=== PATIENT | male | born 1965 | race Caucasian/White ===

== ENCOUNTER 2017-11-19 12:46 | Emergency (ER) | payer BC ==
--- NOTE | 2017-11-19 15:10 | RAD ---
RADIOGRAPH CHEST 1 VIEW: HISTORY: 52-year-old male with cough, chest congestion, fever, and chills. FINDINGS: There is cardiomegaly. There is no evidence of air space density, pulmonary edema, or pneumothorax. T he lateral costophrenic angles are sharp. IMPRESSION: 1. No acute pulmonary findings. 2. Cardiomegaly without congestive heart failure. heriberto [] POS: [facility]
== END 2017-11-19 14:00 | disposition home or self-care (01) ==
LOC: SCSER 12:46
DX: B34.9 Viral infection, unspecified (principal); I10 Essential (primary) hypertension; E11.9 Type 2 diabetes mellitus without complications; E78.5 Hyperlipidemia, unspecified; Z87.891 Personal history of nicotine dependence; Z79.899 Other long term (current) drug therapy
CPT/HCPCS: 71045; 87804; 93005

== ENCOUNTER 2017-12-22 21:24 | Emergency (ER) | payer BC ==
[2017-12-22] MEDS ORDERED: cloNIDine 0.1 MG TAB ONE (21:52)
[2017-12-22] MEDS ORDERED: diphenhydrAMINE 50 MG/ML VIAL ONE (21:52)
[2017-12-22 21:56] LABS: #Basophils 0.1 thou/uL (0.0-0.2); #Eosinphils 0.4 thou/uL (0.0-0.7); #Lymphocytes 1.9 thou/uL (1.20-3.40); #Monocytes 0.8 thou/uL (0.11-0.59); %Basophils 0.8 % (0.0-1.0); %Eosinophils 3.4 % (0.0-10.0); %Lymphocytes 18.9 % (21.0-51.0); %Neutrophils 68.9 % (42.0-75.0); Hemoglobin 14.5 g/dL (14.0-18.0); Mean Corpuscular HGB CONC 35.5 g/dL (32.0-36.0); Mean Corpuscular Hemoglobin 31.1 pg (27.0-31.0); Mean Corpuscular Volume 87.6 fl (80.0-94.0); Platelet Count 219 thou/uL (130-400); RBC Distribution Width 12.2 % (11.5-14.5); Red Blood Cell (RBC) Count 4.68 mill/uL (4.70-6.10); White Blood Cell (WBC) Count 10.2 thou/uL (4.8-10.8)
[2017-12-22 22:04] LABS: INR-International Normal Ratio 1.1; PTT 33.4 SEC (22.9-36.1)
[2017-12-22] MEDS ORDERED: Ondansetron HCl/PF 4 MG/2 ML Vial ONE ×2 (22:11→23:20)
[2017-12-22 22:19] LABS: ALT (SGPT) 25 U/L (8-55); AST (SGOT) 15 U/L (5-34); Albumin 4.4 g/dL (3.5-5.0); Alkaline Phosphatase 77 U/L (40-150); Anion Gap 12 mmol/L (10-20); BUN (Urea Nitrogen) 17 mg/dL (8.4-25.7); Bilirubin, Total 1.1 mg/dL (0.2-1.2); CK (CPK) 154 U/L (30-200); Calc. Creatinine Clearance 0 mL/min (70-130); Calcium 9.1 mg/dL (7.8-10.44); Carbon Dioxide 24 mmol/L (22-29); Chloride 103 mmol/L (98-107); Estimated GFR-MDRD 57; Globulin 1.9 g/dL (2.4-3.5); Glucose 139 mg/dL (70-105); Potassium 4.2 mmol/L (3.5-5.1); Protein, Total 6.3 g/dL (6.0-8.3); Sodium 135 mmol/L (136-145)
[2017-12-22 23:06] LABS: CKMB 2.3 ng/mL (0-6.6); Troponin I Less than 0.010 ng/mL (< 0.028)
--- NOTE | 2017-12-22 23:08 | CT ---
CT HEAD WITHOUT CONTRAST: 12/22/17 Multiple axial tomograms obtained through the head without IV enhancement. HISTORY: Headache. Ventricles are upper normal size. There is no evidence of acute mass, hemorrhage or infarct. Sinuses and mastoids are well aerated. IMPRESSION: Ventricles are upper normal size. If unexplained headaches persists, suggest neurologic consultation. POS: [facility]
[2017-12-22] MEDS ORDERED: hydrALAZINE 20 MG/ML VIAL ONE (23:20)
[2017-12-23] MEDS ORDERED: hydrALAZINE 20 MG/ML VIAL ONE (00:34)
[2017-12-23] MEDS ORDERED: Ondansetron HCl/PF 4 MG/2 ML Vial ONE (00:34)
[2017-12-23] MEDS ORDERED: hydrALAZINE 25 MG TAB ONE (00:34)
[2017-12-23] MEDS ORDERED: Ketorolac Tromethamine 30 MG/ML VIAL ONE (00:34)
[2017-12-23] MEDS ORDERED: methylPREDNISolone Sod Succ/PF 125 MG/2 ML VIAL ONE (02:06)
[2017-12-23] MEDS ORDERED: Magnesium Sulfate 2 GM/100 ML BAG ONE (02:07)
--- NOTE | 2018-01-15 00:24 | EKG ---
Test Reason : Blood Pressure : / mmHG Vent. Rate : 078 BPM Atrial Rate : 078 BPM P-R Int : 178 ms QRS Dur : 082 ms QT Int : 370 ms P-R-T Axes : 029 -09 017 degrees QTc Int : 421 ms Normal sinus rhythm Minimal voltage criteria for LVH, may be normal variant Borderline ECG Confirmed by BERTHA KLEIN ([id number]), general expeditor KATI BAILEY ([id number] on 01/15/2018 12:24:12 AM Referred By: ERNIE Confirmed By:BERTHA KLEIN
== END 2017-12-23 03:26 | disposition home or self-care (01) ==
LOC: ERS 21:24
DX: F07.81 Postconcussional syndrome (principal); S01.81XA Laceration without foreign body of other part of head, initial encounter; G93.2 Benign intracranial hypertension; G44.309 Post-traumatic headache, unspecified, not intractable; I10 Essential (primary) hypertension; E11.9 Type 2 diabetes mellitus without complications; E78.5 Hyperlipidemia, unspecified; F32.9 Major depressive disorder, single episode, unspecified; Z87.891 Personal history of nicotine dependence; Z79.899 Other long term (current) drug therapy; W55.22XA Struck by cow, initial encounter
CPT/HCPCS: 70450; 80053; 82553; 84484; 85025; 85610; 85730; 93005; 96361; 96365; 96375; 96376; J0360; J1200; J1885; J2405; J2930; J3475

== ENCOUNTER 2019-06-10 17:47 | Inpatient (IN) | payer BC ==
[2019-06-10 18:28] LABS: #Basophils 0.1 thou/uL (0.0-0.2); #Eosinphils 0.2 thou/uL (0.0-0.7); #Lymphocytes 1.8 thou/uL (1.20-3.40); #Monocytes 0.5 thou/uL (0.11-0.59); %Basophils 0.6 % (0.0-1.0); %Eosinophils 2.4 % (0.0-10.0); %Lymphocytes 20.8 % (21.0-51.0); %Monocytes 6.3 % (0.0-10.0); %Neutrophils 69.9 % (42.0-75.0); Hemoglobin 14.1 g/dL (14.0-18.0); Mean Corpuscular HGB CONC 36.1 g/dL (32.0-36.0); Mean Corpuscular Hemoglobin 31.7 pg (27.0-31.0); Mean Corpuscular Volume 87.9 fL (78.0-98.0); Mean Platelet Volume 7.4 fL (7.4-10.4); Platelet Count 199 thou/uL (130-400); RBC Distribution Width 12.5 % (11.5-14.5); Red Blood Cell (RBC) Count 4.45 mill/uL (4.70-6.10); White Blood Cell (WBC) Count 8.5 thou/uL (4.8-10.8)
--- NOTE | 2019-06-10 18:46 | RAD ---
PORTABLE CHEST ONE VIEW: Date: 06-10-19 Time: 6:04 p.m. History: Chest pain. FINDINGS: Comparison is made with exam of 11-19-17. The heart size is normal. The lungs are expanded without focal areas of consolidation, pneumothoraces or pleural effusions. IMPRESSION: No radiographic evidence of acute cardiopulmonary process. POS: [facility]
[2019-06-10] MEDS ORDERED: Aspirin Chewable 81 MG TAB ONE (18:48)
[2019-06-10 18:52] LABS: ALT (SGPT) 40 U/L (8-55); AST (SGOT) 22 U/L (5-34); Albumin 4.3 g/dL (3.5-5.0); Alkaline Phosphatase 62 U/L (40-150); Anion Gap 13 mmol/L (10-20); BUN (Urea Nitrogen) 19 mg/dL (8.4-25.7); Bilirubin, Total 0.9 mg/dL (0.2-1.2); Calc. Creatinine Clearance 0 mL/min (70-130); Calcium 9.3 mg/dL (7.8-10.44); Carbon Dioxide 24 mmol/L (22-29); Chloride 105 mmol/L (98-107); Estimated GFR-MDRD 52; Globulin 1.7 g/dL (2.4-3.5); Glucose 138 mg/dL (70-105); Lipase 35 U/L (8-78); Sodium 138 mmol/L (136-145)
[2019-06-10 19:12] LABS: CKMB 2.6 ng/mL (0-6.6)
[2019-06-10] MEDS ORDERED: Enoxaparin Sodium 100 MG/ML SYRINGE ONE (20:16)
[2019-06-10 22:32] LABS: Troponin I 0.035 ng/mL (< 0.028)
[2019-06-11 00:54] LABS: Troponin I 0.034 ng/mL (< 0.028)
[2019-06-11] MEDS ORDERED: Zolpidem Tartrate 5 MG TAB PO SCH (01:00)
--- NOTE | 2019-06-11 03:34 | HP ---
PRIMARY CARE PHYSICIAN: Nathan Nunez M.D. CHIEF COMPLAINT: Chest pain and shortness of breath. HISTORY OF PRESENT ILLNESS: This is a 54-year-old gentleman, patient of Dr. Nathan Nunez's with a history of hypertension, hyperlipidemia, anxiety, and strong family history of heart disease, who presents to the emergency department with 1 week of worsening chest pain with exertion. The patient has been seen by Dr. Arrieta in the past and has had normal workup. He has been concerned about his heart due to strong family history of heart disease in his father, grandfather, and uncles, who have all had their first heart attack or from heart attacks in the late 50s. 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 He states that over the past week whenever he starts working hard in the farm, he developed substernal chest pain with shortness of breath. He denies diaphoresis, but did have some nausea last night during an episode. The pain resolves with rest, but then once he starts working hard again, the pain returns. PAST MEDICAL HISTORY: Hypertension, hyperlipidemia, anxiety, and diet-controlled diabetes. PAST SURGICAL HISTORY: Right hand finger repair, ear tube placement, left shoulder repair, and tonsillectomy in the past. MEDICATIONS: Include, 1. Lisinopril 10 mg daily. 2. Prevacid 30 mg p.r.n. 3. Zoloft 100 mg daily. 4. Lipitor 20 mg daily. 5. Zofran as needed for nausea. PSYCHIATRIC HISTORY: Includes depression in the past. SOCIAL HISTORY: Occasional alcohol, just socially. Chewed tobacco in the past. Quit smoking over 10 years ago. FAMILY HISTORY: Father with NM at 58, grandfather with his first NM at 56, and uncles with heart attacks in their 50s as well. REVIEW OF SYSTEMS: As per the history of present illness. GENERAL: He denies any recent fevers, chills, or recent illness. HEENT: Denies headache, visual or hearing changes. Denies upper respiratory symptoms. CARDIAC: As per the history of present illness. Positive for chest pain. Positive shortness of breath. No palpitations. He states that he had a negative stress test years ago at Dr. Arrieta' office. PULMONARY: No cough or hemoptysis. GI: Denies nausea, vomiting, abdominal pain, melena, or hematochezia. : Denies dysuria or hematuria. NEUROLOGIC: Denies weakness, seizures, or syncope. PHYSICAL EXAMINATION: VITAL SIGNS: Temperature 98.7, pulse of 86, respirations 22, blood pressure 140/82, and pulse ox is 99% on room air. GENERAL: He is awake and alert. No acute distress. Speech is clear. HEENT: Mucosa is moist. NECK: Supple. No bruits. HEART: Regular rate and rhythm without murmurs. LUNGS: Clear bilaterally. ABDOMEN: Soft, nontender. No hepatosplenomegaly. No CVA tenderness. EXTREMITIES: No clubbing, cyanosis, or edema. No calf tenderness. NEUROLOGIC: Cranial nerves 2 through 12 are grossly intact. Strength is 5/5 in upper and lower extremities. LABORATORY DATA: Sodium 138, potassium 4.0, chloride 105, CO2 of 24, BUN and creatinine of 19 and 1.4 with a GFR of 52. Serum glucose of 138, which is nonfasting. Calcium 9.3. AST and ALT are normal. Troponin I was slightly elevated at 0.049 with a normal CK-MB at 2.6. Albumin of 4.3. D-dimer was slightly elevated at 0.54. White blood cell count 8500, hemoglobin and hematocrit of 14.1 and 39.1, platelets of 199. Chest x-ray showed no active disease. EKG revealed normal sinus rhythm. No acute ST-T changes that are observed. ASSESSMENT: This is a 54-year-old gentleman with multiple risk factors including family history, remote smoking, hypertension, hyperlipidemia, and stress, presents to the emergency department with symptoms consistent with unstable angina. PLAN: 1. Agree with admission. We will continue to rule out NM protocol. The patient has already received aspirin. Cardiology is being consulted to evaluate in the morning for further risk stratification including either repeat stress test or cardiac catheterization. 2. Hypertension. We will continue his lisinopril and monitor closely. 3. Hyperlipidemia, already on Lipitor. If he is found to have coronary artery disease, we will likely need to increase to a higher intensity statin at that time. 4. Anxiety. We will continue Zoloft at this time. Job ID: [id number]
[2019-06-11] MEDS ORDERED: ADENOSINE 60 MG/20 ML VIAL ONE (07:22)
--- NOTE | 2019-06-11 09:29 | PRG ---
DATE OF SERVICE: 06/11/2019 SUBJECTIVE: The patient is resting comfortably in bed. He describes no chest pain, no shortness of breath. He states he is feeling well. OBJECTIVE: VITAL SIGNS: His blood pressure is 157/90, temperature 98.7, and O2 saturations 98%. LUNGS: Clear. HEART: Reveals a regular rate and rhythm. No murmurs, gallops, or rubs. LABORATORY DATA: On reviewing lab, his troponins were fairly consistently mildly bumped. Otherwise, no significant elevation is otherwise noted. IMPRESSION: Chest pain with strong family history of cardiac disease. PLAN: Stress test today. Job ID: [id number]
[2019-06-11] MEDS: Aspirin 81 mg Enteric Coated Tablet PO SCH (09:37)
[2019-06-11] MEDS: Atorvastatin Calcium 20 MG TAB PO SCH (09:37)
[2019-06-11] MEDS: Lisinopril 10 MG TAB PO SCH (09:37)
--- NOTE | 2019-06-11 14:07 | CON ---
DATE OF CONSULTATION: 06/11/2019 REASON FOR CONSULTATION: Chest pain. HISTORY OF PRESENT ILLNESS: Mr. Hauser is a pleasant 54-year-old white gentleman, who comes to the hospital for chest pain. He has noticed that for the last week he has had some chest tightness when he does things. He is concerned as his father from an AK in his 50s and he is having a lot of friends get sick lately. He currently is pain free. He denies any chest pain, tightness, pressure, or shortness of breath. PAST MEDICAL HISTORY: 1. Hypertension. 2. Hyperlipidemia. 3. Anxiety. 4. Type 2 diabetes, diet controlled. SURGICAL HISTORY: 1. Right hand finger repair. 2. Ear tube placement. 3. Left shoulder repair. 4. Tonsillectomy. OUTPATIENT MEDICATIONS: 1. Lisinopril 10 mg a day. 2. Prevacid. 3. Zoloft. 4. Lipitor 20 mg a day. 5. Zofran p.r.n. SOCIAL HISTORY: Social alcohol use. Chewed tobacco, but quit 10 years ago. FAMILY HISTORY: Father of an AK at 58. Grandfather had his 1st AK at 56. Uncles with heart attacks in their 50s. ALLERGIES: NO KNOWN DRUG ALLERGIES. REVIEW OF SYSTEMS: A 12-point review of systems was done and was all negative unless stated in the history of present illness. PHYSICAL EXAMINATION: VITAL SIGNS: Temperature 97.4, pulse 72, respiratory rate 18, saturating 96% on room air, and blood pressure 132/86. GENERAL: Awake, alert, and oriented x3, in no distress. HEENT: Normocephalic and atraumatic. NECK: Supple. LUNGS: Clear. CARDIOVASCULAR: S1 and S2. No S3 or S4. No murmurs or rubs. ABDOMEN: Soft. Positive bowel sounds. EXTREMITIES: No edema. SKIN: Warm and dry. LABORATORY DATA: Laboratory work was reviewed. CBC with a white count of 8, hemoglobin 14, hematocrit 39, and platelet count of 199. D-dimer was 0.54. Chemistries with a creatinine of 1.4, GFR of 52, and glucose of 138. Troponin was 0.04, 0.03, and 0.03. Albumin of 4.3. ASSESSMENT AND PLAN: 1. Chest pain. 2. Family history of coronary artery disease. 3. Hypertension. 4. Diet-controlled diabetes. PLAN: We will further risk stratify with a stress test. If his stress test is positive or just mildly positive, we will plan on doing a heart catheterization. If it is completely normal, then we will treat medically and we will re-evaluate in the office in 2-4 weeks. If he continues to have the chest pains, we will plan on doing a heart catheterization at that point. Thank you for letting me to participate in the care of your patient. We will follow. Job ID: [id number]
--- NOTE | 2019-06-11 17:44 | NM ---
CARDIAC SPECT: CLINICAL HISTORY: 54-year-old male with chest pain, shortness of breath, hypertension, diabetes, unstable angina. TECHNIQUE: A myocardial perfusion scan was performed using the single isotope one day protocol with technetium-9 9m sestamibi. 11 mCi were injected intravenously for the rest exam followed by 29 mCi for the stress exam. Pharmacologic stress with Adenosine was monitored and interpreted by Dr. Lugo. FINDINGS: Homogeneous tracer distribution is seen in the myocardial segments on stress and rest images without fixed or reversible defects. GATED SPECT LVEF: 53%. WALL MOTION EXAM: Normal. IMPRESSION: Normal myocardial perfusion scan. POS: [facility]
[2019-06-11] MEDS ORDERED: Acetaminophen 500 MG TAB PO PRN (19:27)
[2019-06-11] MEDS ORDERED: Atorvastatin Calcium 20 MG TAB PO SCH (21:00)
[2019-06-12] MEDS: Sodium Chloride 0.9% 1,000 ML IV SCH ×4 (01:09→10:58)
[2019-06-12] MEDS ORDERED: Aspirin Chewable 81 MG TAB ONE (05:46)
[2019-06-12] MEDS: Aspirin 81 mg Enteric Coated Tablet PO SCH (06:07)
[2019-06-12] MEDS: Lisinopril 10 MG TAB PO SCH (06:08)
[2019-06-12] MEDS: Atorvastatin Calcium 20 MG TAB PO SCH (06:08)
[2019-06-12] MEDS ORDERED: Nitroglycerin 100MG/250ML BOT 250 ML ONE (06:36)
[2019-06-12] MEDS ORDERED: Heparin 10,000 UNITS/1 ML VIAL ONE (06:36)
[2019-06-12] MEDS ORDERED: Lidocaine 1% (PF) 30 ML VIAL ONE ×2 (06:36→08:32)
[2019-06-12] MEDS ORDERED: Verapamil 5 MG/2 ML VIAL ONE (06:37)
[2019-06-12] MEDS ORDERED: Fentanyl 100 MCG/2 ML VIAL ONE (06:37)
[2019-06-12] MEDS ORDERED: Midazolam HCl 2 mg/2 ml Vial ONE (06:37)
[2019-06-12] MEDS ORDERED: Sodium Chloride 0.9% 200 ML IV PRN (09:32)
[2019-06-12] MEDS ORDERED: Acetaminophen/Codeine 30-300mg Tablet PO PRN (09:32)
[2019-06-12] MEDS ORDERED: Nitroglycerin 0.4 MG TAB (25 Tab Bottle) SL PRN (09:32)
[2019-06-12] MEDS ORDERED: Sodium Chloride 0.9% 500 ML IV SCH (09:45)
[2019-06-12] MEDS ORDERED: Iopamidol 370 76% 100 ML VIAL ONE (14:01)
--- NOTE | 2019-06-12 14:21 | PRG ---
DATE OF SERVICE: 06/12/2019 SUBJECTIVE: This 54-year-old white male presented with chest pain. His troponin levels were elevated x3. He was diagnosed with a STEMI and Dr. Lugo is presently performing a cardiac cath on him. His father did of an SD in his 50s. The patient is very concerned about this. OBJECTIVE: VITAL SIGNS: Temperature 98.4, pulse 87, respiration 18, pulse ox 97, and blood pressure 136/84. HEART: Regular rate and rhythm without murmur. LUNGS: Clear. ABDOMEN: Soft. EXTREMITIES: With no edema. LABORATORY DATA: Troponin one 0.049, 0.035, 0.034. ASSESSMENT: 1. ST elevation myocardial infarction. 2. Chest pain. 3. Family history of heart disease. 4. Hypertension. 5. Hyperlipidemia. 6. Obesity. 7. Anxiety disorder. 8. Diabetes, diet control. PLAN: 1. We will check on the patient postop cath. 2. Depending on the results, we will determine whether he goes home today or not. 3. We will continue to treat his risk factors. I have discussed with him several times in the past about weight control, blood pressure control, and lipid control. Job ID: [id number]
[2019-06-12] MEDS ORDERED: Communication Order-Pharmacy FS SCH (17:20)
--- NOTE | 2019-06-12 17:33 | ULT ---
BILATERAL CAROTID DUPLEX ULTRASOUND: 06/12/19 HISTORY: Atherosclerotic vascular disease. TECHNIQUE: Ac scale ultrasound with color flow and spectral Doppler imaging of the extracranial carotid artery system is performed bilaterally. FINDINGS: There is minimal plaque formation on both sides. The peak systolic velocity in the right ICA measures 94 cm/s with an end diastolic velocity of 33 cm/s and systolic ratio of 0.97. The peak systolic velocity in the left ICA measures 112 cm/s with an end diastolic velocity of 22 cm/ s and systolic ratio of 0.84. Flow in both vertebral arteries remains antegrade. IMPRESSION: No evidence of hemodynamically significant stenosis. POS: [facility]
[2019-06-13] MEDS: Sodium Chloride 0.9% 1,000 ML IV SCH ×2 (00:14→13:01)
--- NOTE | 2019-06-13 00:35 | CON ---
DATE OF CONSULTATION: HISTORY OF PRESENT ILLNESS: This is a 54-year-old gentleman with a strong family history of heart disease with the father dying from a myocardial infarction. He began having some chest pains this past week with exertion that he felt was possibly indigestion. However, due to his family history, presented to the hospital. Although his stress test was read as normal, he did experience the most significant chest pain that he has had while doing the stress test. Cardiac catheterization was done today by Dr. Lugo and this did demonstrate an aneurysmal LAD and proximal circumflex with calcified ostial LAD stenosis and severe OM1 disease. The main circumflex and distal vessels which were left-dominant system had mild to moderate disease and the vessels did not exit the AV groove in a large enough manner to be bypassable. The right coronary artery was very small, nondominant, with significant disease. LVEF was felt to be normal. Cardiac echo has not been done. His chest x-ray was normal. His cardiac enzymes were slightly elevated with a troponin I up to 0.49. Creatinine was slightly elevated on admission at 1.4. PAST MEDICAL HISTORY: Includes hypertension, dyslipidemia, which have been treated. He has a remote smoking history, but none in many years and he did chew tobacco for many years. He states he has diet-controlled diabetes and I do not have a hemoglobin A1c. 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 He is . PAST SURGICAL HISTORY: Includes surgery on his right hand as well as left shoulder rotator cuff repair and remote tonsillectomy. MEDICATIONS: Prior to admission included; 1. Lisinopril 10. 2. Prevacid 30. 3. Zoloft . 4. Lipitor 20. ALLERGIES: NO KNOWN ALLERGIES. PHYSICAL EXAMINATION: GENERAL: He is an alert and cooperative gentleman. VITAL SIGNS: Weight 223 pounds. Height 5 feet 10 inches. NECK: No carotid bruits. Carotid ultrasound by the way showed no significant disease. CARDIAC: Regular rate and rhythm. No murmurs. LUNGS: Clear to auscultation. ABDOMEN: Obese, nontender, and unable to palpate organomegaly. EXTREMITIES: He has palpable pedal pulses bilateral. He is left arm dominant and had a heart catheterization through his right radial artery. At this time, the patient could have 2 grafts to his LAD and obtuse marginal. Informed consent has been obtained and schedule permitting, we will proceed with this on morning. Plan on CHU to the LAD in either saphenous vein or left radial artery to the obtuse marginal. Job ID: [id number]
[2019-06-13 07:55] LABS: Hemoglobin A1c 6.3 % (4.0-6.0)
[2019-06-13 08:09] LABS: Anion Gap 14 mmol/L (10-20); BUN (Urea Nitrogen) 14 mg/dL (8.4-25.7); Calc. Creatinine Clearance 97 mL/min (70-130); Calcium 9.3 mg/dL (7.8-10.44); Carbon Dioxide 22 mmol/L (22-29); Chloride 107 mmol/L (98-107); Estimated GFR-MDRD 61; Glucose 116 mg/dL (70-105); Potassium 4.6 mmol/L (3.5-5.1); Sodium 138 mmol/L (136-145)
--- NOTE | 2019-06-13 08:47 | CT ---
EXAM: CTA of the chest and abdomen HISTORY: Chest pain and epigastric pain for one week COMPARISON: None TECHNIQUE: Multiple contiguous axial images were obtained a CTA of the chest and abdomen with contras t per aortic dissection protocol. Sagittal and coronal 3-D MIP reformats were performed. FINDINGS: HEART: Normal in size without focal cardiac abnormality. PULMONARY ARTERIES: Normal in caliber without filling defects to suggest pulmonary emboli. MEDIASTINUM: No hilar or mediastinal lymphadenopathy. LUNGS: No focal infiltrates or masses. PLEURAL SPACE: No pleural effusion or pneumothorax. CHEST AND ABDOMINAL WALL SOFT TISSUES: Unremarkable LIVER: Unremarkable. GALLBLADDER: Unremarkable. KIDNEYS: Unremarkable. SPLEEN: Unremarkable. PANCREAS: Unremarkable. BOWEL: Unremarkable. RETROPERITONEUM: No lymphadenopathy BONES: Degenerative changes in the spine. ASCENDING THORACIC AORTA: Normal caliber without evidence of dissection or aneurysmal dilatation. DESCENDING THORACIC AORTA: Normal caliber without evidence of dissection or aneurysmal dilatation. ABDOMINAL AORTA: Normal caliber without evidence of dissection or aneurysmal dilatation. CELIAC TRUNK: Patent SMA: Patent MARY ELLEN: Patent RENAL ARTERIES: Bilateral single renal arteries without significant atherosclerotic disease IMPRESSION: No evidence of thoracic or abdominal aortic aneurysm or dissection
[2019-06-13] MEDS: Lisinopril 10 MG TAB PO SCH (09:31)
--- NOTE | 2019-06-13 12:29 | PRG ---
DATE OF SERVICE: 06/13/2019 SUBJECTIVE: The patient is doing well this morning. No complaints of chest pain or shortness of breath. Had a long discussion yesterday with Dr. Lugo and myself. The patient understands disease of his coronary artery disease. He is in need of bypass surgery. OBJECTIVE: VITAL SIGNS: Temperature 97.7, pulse 60, respirations 18, pulse ox 97, blood pressure 142/87. HEART: Regular rate and rhythm. LUNGS: Clear. ABDOMEN: Soft and nontender. EXTREMITIES: No edema. LABORATORY DATA: None. ASSESSMENT: 1. Coronary artery disease with significant disease to the left main artery as well as the obtuse marginal. 2. Hypertension. 3. Hyperlipidemia. 4. Obesity. 5. Anxiety disorder. 6. Diabetes, diet-controlled, with normal A1c. PLAN: 1. CT of the aorta today. Depending on the results, we will dictate the plan. 2. Appreciate Dr. Lugo and Dr. Beasley. 3. Possible bypass surgery in the a.m. Again, I had a long discussion with the patient about major lifestyle changes, especially his dietary habits. Job ID: [id number]
[2019-06-13] MEDS ORDERED: Lactated Ringer's 1,000 ML IV SCH (17:00)
--- NOTE | 2019-06-13 17:08 | PDOC.CPN ---
- Subjective Date: 06/13/19 Time: 12:30 - Review of Systems General: denies: fever/chills, weight/appetite/sleep changes, night sweats, fatigue Respiratory: denies: cough, congestion, shortness of breath, exercise intolerance Cardiovascular: denies: chest pain, palpitation, edema, paroxysmal nocturnal dyspnea, orthopnea Gastrointestinal: denies: nausea, vomiting, diarrhea, constipation, abd pain, GI bleeding Musculoskeletal: reports: pain. denies: tenderness, stiffness, swelling, arthritis/arthralgias Neurological: denies: numbness, syncope, seizure, weakness - Objective Allergies/Adverse Reactions: Allergies Allergy/AdvReac Type Severity Reaction Status Date / Time No Known Allergies Allergy Unverified 06/10/19 22:42 Visit Medications: Current Medications Lactated Ringer's (Lactated Ringer's) 1,000 mls @ 50 mls/hr IV .Q20H [facility] Last Admin: 06/13/19 16:58 Dose: 1,000 mls Lisinopril (Zestril) 10 mg PO DAILY [facility] Last Admin: 06/13/19 09:31 Dose: 10 mg Vital Signs & Weight: Vital Signs Temp Pulse Resp BP Pulse Ox 06/13/19 12:00 98.1 F 70 17 128/65 98 06/13/19 07:52 97.7 F 60 18 142/87 H 97 Weight 223 lb 12.307 oz - Physical Exam General: alert & oriented x3, no apparent distress HEENT: mucus membranes moist Neck: supple neck Cardiac: regular rate and rhythm, no murmur Lungs: clear to auscultation Neuro: grossly intact Abdomen: active bowel sounds, soft, non-tender Skin: clear Musculoskeletal: normal range of motion - Labs Result Diagrams: 06/10/19 18:15 06/13/19 07:38 Troponin/CKMB CK-MB (CK-2) 2.6 ng/mL (0-6.6) 06/10/19 18:15 Troponin I 0.034 ng/mL (< 0.028) H 06/11/19 00:21 - Telemetry Sinus rhythms and dysrhythmias: sinus rhythm - Assessment/Plan Assessment/Plan: 1. Multivessel CAD. 2. Unstable angina 3. Aneurysmal coronary arteries. PLAN: - CT angio of the chest was unremarkable, no aneurysm. - ASA/statin/BB and ACEI. - Dr. Beasley on board for CABG soon. - Will follow.
[2019-06-13] MEDS ORDERED: ALPRAZolam 0.5 MG TAB PO SCH (19:45)
[2019-06-14] MEDS ORDERED: CEFAZOLIN 2 GM in Premix Bag 1 BAG IVPB SCH (01:45)
[2019-06-14] MEDS: Lisinopril 10 MG TAB PO SCH (05:43)
[2019-06-14] MEDS ORDERED: Ampicillin 2 GM VIAL ONE (06:09)
[2019-06-14] MEDS ORDERED: Albumin 5% 500 ML ONE (06:36)
[2019-06-14] MEDS ORDERED: Vecuronium 10 MG VIAL ONE ×2 (06:48→12:50)
[2019-06-14] MEDS ORDERED: Midazolam HCl 5 mg/5 ml Vial ONE (06:48)
[2019-06-14] MEDS ORDERED: Fentanyl 250 MCG/5 ML VIAL ONE (06:48)
[2019-06-14] MEDS ORDERED: Dexmedetomidine 200 MCG/2 ML VIAL ONE (06:48)
[2019-06-14] MEDS ORDERED: Heparin 10,000 UNITS/1 ML VIAL 30,000 UNITS in Sodium Chloride 0.9% 1,000 ML FS SCH (07:00)
[2019-06-14] MEDS ORDERED: Midazolam HCl 2 mg/2 ml Vial ONE (07:09)
[2019-06-14] MEDS ORDERED: Insulin Regular 300 UNITS/3 ML VIAL ONE (09:20)
[2019-06-14] MEDS ORDERED: Nitroglycerin 50 MG/250 ML BOT 250 ML IVPB PRN (11:41)
[2019-06-14] MEDS ORDERED: DOPamine 400 MG/D5W 250 ML 250 ML IVPB PRN (11:41)
[2019-06-14] MEDS ORDERED: hydrALAZINE 20 MG/ML VIAL SLOW IVP PRN (11:41)
[2019-06-14] MEDS ORDERED: Hetastarch 6% 500 ML 500 ML IVPB PRN (11:41)
[2019-06-14] MEDS ORDERED: Bisacodyl 10 MG SUPP PR PRN (11:41)
[2019-06-14] MEDS ORDERED: Norepinephrine 8 MG/0.9% NS 250 ML IVPB PRN (11:41)
[2019-06-14] MEDS ORDERED: Promethazine HCl 25 MG/ML VIAL IM PRN (11:41)
[2019-06-14] MEDS ORDERED: Guaifenesin DM 100-10/5 ML UDCUP PO PRN (11:41)
[2019-06-14] MEDS ORDERED: Post-Op Insulin Drip Protocol IVPB ONE (11:41)
[2019-06-14] MEDS ORDERED: HYDROcodone/Acetaminophen 5/325 mg Tablet PO PRN (11:41)
[2019-06-14] MEDS ORDERED: Bisacodyl 5 MG TAB PO PRN (11:41)
[2019-06-14] MEDS ORDERED: Magnesium 2 GM/50 ML 2 GM in Premix Bag 1 BAG IVPB SCH (11:41)
[2019-06-14] MEDS ORDERED: niCARdipine 25 MG in Sodium Chloride 0.9% 250 ML 250 ML IVPB PRN (11:41)
[2019-06-14] MEDS ORDERED: Fentanyl 100 MCG/2 ML VIAL SLOW IVP PRN (11:41)
[2019-06-14] MEDS ORDERED: Acetaminophen 325 MG TAB PO PRN (11:41)
[2019-06-14] MEDS ORDERED: Potassium Chloride 20 MEQ/100 ML PREMIX BAG IVPB PRN (11:41)
[2019-06-14] MEDS ORDERED: Morphine 2 MG/ML SYRINGE SLOW IVP PRN (11:41)
[2019-06-14] MEDS ORDERED: Mag-Al 1200 mg/1200 mg/30 ML UDCUP PO PRN (11:41)
[2019-06-14] MEDS ORDERED: Ondansetron PF 4 MG/2 ML Vial IVP PRN (11:41)
[2019-06-14] MEDS ORDERED: Fentanyl 100 MCG/2 ML VIAL ONE (11:59)
--- NOTE | 2019-06-14 12:03 | RAD ---
EXAM: Single view of the chest HISTORY: Status post open heart surgery COMPARISON: 06/10/2019 FINDINGS: Single view of the chest shows a normal sized cardiomediastinal silhouette. The patient is status post sternotomy. A right subclavian central venous catheter seen with its tip in the superior vena cava. A right-sided chest tube is seen without evidence of pneumothorax. There is no e vidence of consolidation, mass, or pleural effusion. IMPRESSION: Status post sternotomy without evidence of complication.
[2019-06-14 12:12] LABS: Hemoglobin 12.7 g/dL (14.0-18.0); Mean Corpuscular HGB CONC 35.7 g/dL (32.0-36.0); Mean Corpuscular Hemoglobin 31.8 pg (27.0-31.0); Mean Corpuscular Volume 89.1 fL (78.0-98.0); Mean Platelet Volume 7.2 fL (7.4-10.4); Platelet Count 208 thou/uL (130-400); RBC Distribution Width 12.7 % (11.5-14.5); White Blood Cell (WBC) Count 20.6 thou/uL (4.8-10.8)
[2019-06-14] MEDS ORDERED: Insulin Regular 300 UNITS/3 ML VIAL SC PRN (12:13)
[2019-06-14] MEDS ORDERED: Dextrose 50% Abboject 50 ML SYRINGE SLOW IVP PRN (12:13)
[2019-06-14] MEDS ORDERED: HUMULIN R 100 UNITS in Sodium Chloride 0.9% 100 ML IVPB SCH (12:13)
[2019-06-14] MEDS ORDERED: Dextrose 5% in Water 1,000 ML IV PRN (12:13)
[2019-06-14] MEDS: Fentanyl 100 MCG/2 ML VIAL SLOW IVP PRN ×3 (12:20→20:31)
[2019-06-14] MEDS: Ketorolac Tromethamine 30 MG/ML VIAL IVP SCH ×2 (12:21→17:49)
[2019-06-14 12:28] LABS: Anion Gap 11 mmol/L (10-20); BUN (Urea Nitrogen) 12 mg/dL (8.4-25.7); Calc. Creatinine Clearance 112 mL/min (70-130); Carbon Dioxide 20 mmol/L (22-29); Chloride 116 mmol/L (98-107); Estimated GFR-MDRD 72; Glucose 85 mg/dL (70-105); INR-International Normal Ratio 1.3; PTT 31.4 SEC (22.9-36.1); Potassium 4.1 mmol/L (3.5-5.1); Prothrombin Time 16.2 SEC (12.0-14.7); Sodium 143 mmol/L (136-145)
[2019-06-14] MEDS: Lactated Ringer's 1,000 ML IV SCH (12:30)
[2019-06-14 12:43] LABS: Band 7 % (5-11); Eosinophils 1 % (0-10); Lymphocytes 10 % (21-51); MDiff Complete? YES; Monocytes 9 % (0-10); Neutrophil 72 % (42-75); Ovalocytes SLIGHT = 2-5 cells (100X) (0-1/hpf); Platelet Morphology Comment Appears Adequate; Polychromasia SLIGHT = 2-3 cells (100X) (0-2/hpf)
[2019-06-14] MEDS ORDERED: Sodium Bicarb 50 MEQ/50 ML VIAL ONE (12:50)
[2019-06-14] MEDS ORDERED: Lidocaine 2% PF 100 mg/5 ml Syringe ONE (12:50)
[2019-06-14] MEDS ORDERED: Nitroglycerin 50 MG/250 ML BOT ONE (12:50)
[2019-06-14] MEDS ORDERED: Ondansetron PF 4 MG/2 ML Vial ONE (12:50)
[2019-06-14] MEDS ORDERED: Aminocaproic Acid 5 GM/20 ML VIAL ONE (12:50)
[2019-06-14] MEDS ORDERED: Protamine Sulfate 250 MG/25 ML VIAL ONE (12:50)
[2019-06-14] MEDS ORDERED: Potassium Chloride 60 MEQ/30 ML VIAL ONE (12:50)
[2019-06-14] MEDS ORDERED: PROPOFOL 200 MG/20 ML VIAL ONE (12:50)
[2019-06-14] MEDS ORDERED: Cardioplegic Soln 1,000 ML BAG ONE (12:50)
[2019-06-14] MEDS ORDERED: Heparin 5,000 UNITS/ML VIAL ONE (12:50)
[2019-06-14] MEDS ORDERED: Papaverine 60 MG/2 ML VIAL ONE (12:50)
[2019-06-14] MEDS ORDERED: Magnesium 5 GM/10 ML VIAL ONE (12:50)
[2019-06-14] MEDS ORDERED: Thrombin 5000 UNITS/5 ML VIAL ONE (12:50)
[2019-06-14] MEDS ORDERED: Heparin 30,000 units/30 ml VIAL ONE (12:50)
[2019-06-14] MEDS ORDERED: Norepinephrine 4 MG/4 ML VIAL ONE (12:50)
[2019-06-14] MEDS ORDERED: Mannitol 12.5 GM/50 ML ONE (12:50)
[2019-06-14] MEDS ORDERED: Calcium Chloride 1 GM/10 ML Abboject SYRINGE ONE (12:50)
[2019-06-14] MEDS ORDERED: Glycopyrrolate 0.2 MG/ML 5 ML SYRINGE ONE (12:50)
[2019-06-14] MEDS: HYDROcodone/Acetaminophen 5/325 mg Tablet PO PRN ×3 (13:36→22:17)
[2019-06-14 13:59] VITALS: BMI 30.9
[2019-06-14] MEDS: CEFAZOLIN 2 GM in Premix Bag 1 BAG IVPB SCH ×2 (14:21→22:11)
--- NOTE | 2019-06-14 16:50 | PDOC.CPN ---
- Subjective Date: 06/14/19 Time: 12:00 - Review of Systems ROS unobtainable: due to mental status - Objective Allergies/Adverse Reactions: Allergies Allergy/AdvReac Type Severity Reaction Status Date / Time No Known Allergies Allergy Unverified 06/10/19 22:42 Visit Medications: Current Medications Acetaminophen (Tylenol) 650 mg PO Q6H PRN PRN Reason: Headache/Fever Or Mild Pain Hydrocodone Bitart/Acetaminophen ([place] 5/325) 1 tab PO Q4H PRN PRN Reason: Moderate Pain (4-6) Hydrocodone Bitart/Acetaminophen ([place] 5/325) 2 tab PO Q4H PRN PRN Reason: Severe Pain (7-10) Last Admin: 06/14/19 13:36 Dose: 2 tab Al Hydroxide/Mg Hydroxide (Maalox) 30 ml PO Q4H PRN PRN Reason: Indigestion Albumin Human (Albumin 5%) 12.5 gm IVPB Q6H PRN PRN Reason: To Maintain SBP> 90 mmHG Stop: 06/15/19 11:42 Last Admin: 06/14/19 14:30 Dose: 12.5 gm Albumin Human (Albumin 5%) 25 gm IVPB Q6H PRN PRN Reason: To Maintain SBP > 90 mmHG Stop: 06/15/19 11:42 Albuterol/Ipratropium (Duoneb) 3 ml NEB [id number] PRN PRN Reason: SHORTNESS OF BREATH Aspirin (Aspirin) 325 mg PO DAILY [facility] Bisacodyl (Dulcolax) 10 mg PO Q12H PRN PRN Reason: Constipation Bisacodyl (Dulcolax) 10 mg [place] Q12H PRN PRN Reason: Constipation Dextrose/Water (Dextrose 50%) 25 gm SLOW IVP PRN PRN PRN Reason: PER HYPOGLYCEMIC PROTOCOL Famotidine (Pepcid) 20 mg SLOW IVP Q12HR [facility] Fentanyl (Sublimaze) 25 mcg SLOW IVP Q2H PRN PRN Reason: Moderate Pain (4-6) Stop: 06/16/19 11:28 Last Admin: 06/14/19 12:06 Dose: 25 mcg Fentanyl (Sublimaze) 50 mcg SLOW IVP Q2H PRN PRN Reason: Severe Pain (7-10) Stop: 06/16/19 11:28 Last Admin: 06/14/19 14:20 Dose: 50 mcg Glucagon (Glucagon) 1 mg SC PRN PRN PRN Reason: PER HYPOGLYCEMIC PROTOCOL Guaifenesin/Dextromethorphan (Robitussin Dm) 15 ml PO Q4H PRN PRN Reason: Cough Hydralazine HCl (Apresoline) 10 mg SLOW IVP Q6H PRN PRN Reason: To Maintain SBP< 140mmHG Cefazolin Sodium/Dextrose 2 gm (/ Device) 50 mls @ 100 mls/hr IVPB Q8HR [facility] Stop: 06/15/19 06:29 Last Admin: 06/14/19 14:21 Dose: 50 mls Dopamine HCl/Dextrose (Dopamine 400 Mg/D5w 250 Ml) 250 mls @ 0 mls/hr IVPB PRN PRN; Protocol PRN Reason: To maintain SBP > 90 mmHG Hetastarch/Sodium Chloride (Hespan) 500 mls @ 0 mls/hr IVPB PRN PRN PRN Reason: To Maintain SBP > 90mmHg Stop: 06/15/19 11:28 Lactated Ringer's (Lactated Ringer's) 1,000 mls @ 75 mls/hr IV .[id number] [facility] Last Admin: 06/14/19 12:30 Dose: 1,000 mls Norepinephrine Bitartrate (Levophed) 250 mls @ 0 mls/hr IVPB PRN PRN; Protocol PRN Reason: To maintain SBP > 90 mmHG Nicardipine HCl 25 mg/ Sodium (Chloride) 260 mls @ 0 mls/hr IVPB INF PRN; Protocol PRN Reason: To Maintain SBP< 140mmHG Nitroglycerin/Dextrose (Nitroglycerin 50 Mg/250 Ml Bot) 250 mls @ 0 mls/hr IVPB PRN PRN; Protocol PRN Reason: To Maintain SBP< 140mmHG Insulin Human Regular 100 (units/ Sodium Chloride) 101 mls @ 0 mls/hr IVPB INF JIM; Protocol Dextrose/Water (D5w) 1,000 mls @ 0 mls/hr IV INF PRN PRN Reason: PRN HYPOGLYCEMIC PROTOCOL Insulin Glargine (Lantus) 0 units SC ONE PRN PRN Reason: POST OPEN HEART ORDERS Stop: 06/15/19 17:00 Insulin Human Regular (Humulin R) 0 units SC Q4H PRN; Protocol PRN Reason: POST CABG SLIDING SCALE Ketorolac Tromethamine (Toradol) 15 mg IVP Q6HR [facility] Stop: 06/17/19 12:01 Last Admin: 06/14/19 12:21 Dose: 15 mg Morphine Sulfate (Morphine) 2 mg SLOW IVP Q15MIN PRN PRN Reason: Severe Pain (7-10) Ondansetron HCl (Zofran) 4 mg IVP Q6H PRN PRN Reason: Nausea/Vomiting Last Admin: 06/14/19 12:36 Dose: 4 mg Potassium Chloride (Kcl) 20 meq IVPB PRN PRN PRN Reason: K level </= 4.0 Promethazine HCl (Phenergan) 6.25 mg IM Q4H PRN PRN Reason: Nausea/Vomiting Vital Signs & Weight: Vital Signs Temp Pulse Resp Pulse Ox 06/14/19 11:53 48 L 22 H 97 06/14/19 11:50 50 L 06/14/19 11:47 97.8 F 100 Admit Weight 215 lb 9.793 oz Weight 215 lb 9.793 oz - Physical Exam General: other (In pain, just extubated.) HEENT: mucus membranes moist Neck: supple neck Cardiac: regular rate and rhythm, regular rate, regular rhythm Lungs: clear to auscultation Neuro: grossly intact Abdomen: active bowel sounds, soft Skin: clear Musculoskeletal: normal range of motion - Labs Result Diagrams: 06/14/19 11:54 06/14/19 11:54 Troponin/CKMB CK-MB (CK-2) 2.6 ng/mL (0-6.6) 06/10/19 18:15 Troponin I 0.034 ng/mL (< 0.028) H 06/11/19 00:21 - Telemetry Sinus rhythms and dysrhythmias: sinus rhythm - Assessment/Plan Assessment/Plan: 1. Multivessel CAD. 2. Unstable angina 3. Aneurysmal coronary arteries. 4. S/P CABG x 2 CHU to LAD and SVG to OM. PLAN: - Continue post op care. - Wean levophed as tolerated. - ASA/statin for life. - BB and ACEI once BP allows.
[2019-06-14 18:01] LABS: Hemoglobin 12.8 g/dL (14.0-18.0)
[2019-06-14 18:20] LABS: Potassium 4.5 mmol/L (3.5-5.1)
[2019-06-14] MEDS: Famotidine/PF 20 mg/2ml Vial SLOW IVP SCH (20:33)
[2019-06-14] MEDS: Atorvastatin Calcium 20 MG TAB PO SCH (20:33)
--- NOTE | 2019-06-14 21:04 | PRG ---
DATE OF SERVICE: SUBJECTIVE: Postop day #0 status post bypass grafting. The patient has just returned from the OR. He is alert, talking. He is in moderate pain and receiving pain medicines. is at the bedside. He is doing well. OBJECTIVE: VITAL SIGNS: Temperature 98, pulse 48, respirations 22, pulse ox 97, blood pressure 135/74. HEART: Regular rate and rhythm. LUNGS: Relatively clear. ABDOMEN: Soft. EXTREMITIES: No edema. LABORATORY DATA: H and H postop 12 and 35. Electrolytes normal. Creatinine 1.06, BUN 72, blood sugar 85. ASSESSMENT: 1. Postop day #1 status post coronary artery bypass grafting by Dr. Beasley. 2. Multivessel coronary artery disease. 3. Unstable angina. 4. Aneurysmal coronary arteries. 5. Hypertension. 6. Hyperlipidemia. 7. Obesity. 8. Anxiety disorder. 9. Diabetes, diet controlled. PLAN: 1. Routine postop orders. 2. Hopefully, can ambulate tomorrow. 3. We will continue to monitor blood pressure and blood sugars. 4. We will continue to discuss cardiac reducing measures. Job ID: [id number]
[2019-06-15] MEDS: Ketorolac Tromethamine 30 MG/ML VIAL IVP SCH ×2 (00:02→05:39)
[2019-06-15] MEDS: Fentanyl 100 MCG/2 ML VIAL SLOW IVP PRN (03:10)
[2019-06-15] MEDS: Lactated Ringer's 1,000 ML IV SCH ×2 (03:11→15:26)
[2019-06-15 04:50] LABS: #Lymphocytes 1.3 thou/uL (1.20-3.40); #Monocytes 0.9 thou/uL (0.11-0.59); #Neutrophils 8.3 thou/uL (1.40-6.50); %Basophils 0.3 % (0.0-1.0); %Eosinophils 0.1 % (0.0-10.0); %Lymphocytes 12.1 % (21.0-51.0); %Monocytes 8.2 % (0.0-10.0); %Neutrophils 79.3 % (42.0-75.0); Hemoglobin 11.3 g/dL (14.0-18.0); Mean Corpuscular HGB CONC 34.5 g/dL (32.0-36.0); Mean Corpuscular Hemoglobin 31.6 pg (27.0-31.0); Mean Corpuscular Volume 91.7 fL (78.0-98.0); Mean Platelet Volume 7.6 fL (7.4-10.4); Platelet Count 172 thou/uL (130-400); RBC Distribution Width 13.2 % (11.5-14.5); Red Blood Cell (RBC) Count 3.58 mill/uL (4.70-6.10); White Blood Cell (WBC) Count 10.4 thou/uL (4.8-10.8)
[2019-06-15 04:59] LABS: Anion Gap 11 mmol/L (10-20); BUN (Urea Nitrogen) 18 mg/dL (8.4-25.7); Calc. Creatinine Clearance 87 mL/min (70-130); Calcium 7.8 mg/dL (7.8-10.44); Carbon Dioxide 21 mmol/L (22-29); Chloride 107 mmol/L (98-107); Estimated GFR-MDRD 57; Glucose 106 mg/dL (70-105); Sodium 135 mmol/L (136-145)
[2019-06-15] MEDS: HYDROcodone/Acetaminophen 5/325 mg Tablet PO PRN ×5 (05:09→21:45)
[2019-06-15] MEDS: CEFAZOLIN 2 GM in Premix Bag 1 BAG IVPB SCH (05:40)
--- NOTE | 2019-06-15 08:03 | OP ---
DATE OF PROCEDURE: 06/14/2019 PREOPERATIVE DIAGNOSIS: Coronary artery disease. PROCEDURE PERFORMED: Coronary artery bypass graft x2, left internal mammary artery to an LAD and saphenous vein graft to an OM. POULTRY PINNER: None. ANESTHESIA: General. TRANSFUSION: No transfusion. DESCRIPTION OF PROCEDURE: After adequate anesthesia had been obtained, the patient was prepped and draped. Saphenous vein harvested from the left knee distally. Following preparation of this, median sternotomy was performed, entering the right pleura in one small area. Left internal mammary artery was harvested and the pleura was entered as well. Heparin was given. The mammary divided distally and passed posterior to the thymus gland. Aorta and right atrium were cannulated and cardiopulmonary bypass was begun. The aorta was cross clamped. A liter of cold blood cardioplegia given through the aortic root. Following this, the obtuse marginal was exposed and had plaque diffusely throughout. It was opened just as it bifurcated distally and had posterior plaquing here. Saphenous vein anastomosis completed. The LAD was then palpated and it too was diffusely calcified throughout its entire extent. A soft spot was isolated and opened, and even at this soft spot, plaque was divided. The mammary artery anastomosis was completed here. Cross-clamp removed, partial occluding clamp placed. A single anastomosis performed. Following this, the distal MARY ELLEN was bleeding and additional sutures were required. The patient was then weaned from cardiopulmonary bypass. Cannula was removed and the aortic cannulation site required additional Prolene suture. Following protamine administration, the patient had mediastinal and bilateral pleural drains placed. The sternum was then reapproximated with #7 interrupted wire using vancomycin paste on the sternal edges, platelet-rich blood, and platelet-poor plasma. Subcutaneous tissue and skin were closed in layers. Job ID: [id number]
[2019-06-15] MEDS: Famotidine/PF 20 mg/2ml Vial SLOW IVP SCH (08:54)
[2019-06-15] MEDS ORDERED: Aspirin 325 MG TAB PO SCH (09:00)
--- NOTE | 2019-06-15 09:30 | RAD ---
CHEST 1 VIEW: INDICATION: Status post open heart surgery. COMPARISON: Prior exam dated 06/14/2019. FINDINGS/IMPRESSION: Right-sided thoracostomy tube and right subclavian central venous catheter are unchanged. Cardiomega ly and midline sternotomy changes are similar-appearing. No pneumothorax is evident. Lungs are luis r. POS: OFF
[2019-06-15 10:23] LABS: Actual Bicarbonate (HCO3a) 20.3 mEq/L (22-28); Analyzer IN Cardio OR; Base Excess (BEa) -3.8 mEq/L (-2.0 to +3.0); Calcium, Ionized 1.11 mmol/L (1.12-1.30); Carboxyhemoglobin (COHb) 0.5 gm% (0.0-3.0); Hemoglobin (Hb) 13.4 g/dL (14.0-18.0); Potassium - ABG Lab 3.48 mmol/L (3.70-5.30); pH, Arterial 7.39 (7.35-7.45)
[2019-06-15 10:24] LABS: Actual Bicarbonate (HCO3a) 17.3 mEq/L (22-28); Analyzer IN Cardio OR; Base Excess (BEa) -7.4 mEq/L (-2.0 to +3.0); CO2 Tension 32.6 mmHg (35.0-45.0); Calcium, Ionized 1.09 mmol/L (1.12-1.30); Carboxyhemoglobin (COHb) 0.3 gm% (0.0-3.0); Hemoglobin (Hb) 12.7 g/dL (14.0-18.0); O2 Tension (PaO2) 272.5 mmHg (80.0-100.0); Potassium - ABG Lab 3.87 mmol/L (3.70-5.30); pH, Arterial 7.34 (7.35-7.45)
[2019-06-15 10:24] LABS: Actual Bicarbonate (HCO3a) 19.9 mEq/L (22-28); Analyzer IN Cardio OR; Base Excess (BEa) -6.1 mEq/L (-2.0 to +3.0); CO2 Tension 41.1 mmHg (35.0-45.0); Calcium, Ionized 1.02 mmol/L (1.12-1.30); Carboxyhemoglobin (COHb) 0.3 gm% (0.0-3.0); O2 Tension (PaO2) 427.8 mmHg (80.0-100.0); Potassium - ABG Lab 4.05 mmol/L (3.70-5.30)
[2019-06-15 10:29] LABS: Actual Bicarbonate (HCO3v) 20 mEq/L (22-28); Analyzer IN Cardio OR; Base Excess -6.8 mEq/L (-2.0 to +3.0); Calcium, Ionized 1.01 mmol/L (1.16-1.32); Chloride (ABG LAB) 108 mmol/L (98-106); Hemoglobin (Hb) 10.7 g/dL (13.1-17.2); Potassium - ABG Lab 3.92 mmol/L (3.70-5.30); Sodium 137.1 mmol/L (133-146); pH (venous) 7.27 (7.32-7.43)
[2019-06-15 10:29] LABS: Actual Bicarbonate (HCO3a) 22.6 mEq/L (22-28); Analyzer IN Cardio OR; Base Excess (BEa) -3.8 mEq/L (-2.0 to +3.0); CO2 Tension 46.6 mmHg (35.0-45.0); Calcium, Ionized 1.02 mmol/L (1.12-1.30); Carboxyhemoglobin (COHb) 0.2 gm% (0.0-3.0); Hemoglobin (Hb) 10.8 g/dL (14.0-18.0); Potassium - ABG Lab 3.72 mmol/L (3.70-5.30)
[2019-06-15 10:30] LABS: Puncture Site ALINE
[2019-06-15 10:30] LABS: Actual Bicarbonate (HCO3a) 21.3 mEq/L (22-28); Analyzer IN Cardio OR; CO2 Tension 39.7 mmHg (35.0-45.0); Calcium, Ionized 1.12 mmol/L (1.12-1.30); Carboxyhemoglobin (COHb) 0.3 gm% (0.0-3.0); Hemoglobin (Hb) 11.4 g/dL (14.0-18.0); Potassium - ABG Lab 3.67 mmol/L (3.70-5.30); pH, Arterial 7.35 (7.35-7.45)
[2019-06-15 10:30] LABS: Puncture Site ALINE
[2019-06-15 10:31] LABS: Puncture Site ALINE
[2019-06-15 10:31] LABS: Puncture Site ALINE
[2019-06-15 10:32] LABS: Puncture Site ALINE
--- NOTE | 2019-06-15 11:04 | EKG ---
Test Reason : POST CABG Blood Pressure : / mmHG Vent. Rate : 047 BPM Atrial Rate : 047 BPM P-R Int : 162 ms QRS Dur : 066 ms QT Int : 450 ms P-R-T Axes : 026 -04 -04 degrees QTc Int : 398 ms Marked sinus bradycardia Abnormal ECG Confirmed by WILMA SOTO ([id number]) on 06/15/2019 11:04:02 AM Referred By: BG Confirmed By:WILMA SOTO
--- NOTE | 2019-06-15 12:18 | PQF ---
DATE: 06-15-19 ATTN: DR. EDWARDO HUDDLESTON Please exercise your independent, professional judgment in responding to the clarification form. Clinical indicators are provided on the bottom of this form for your review Please check appropriate box(s): [x ] Acute Renal Failure (ARF) / Acute Kidney Injury (ANNIKA) [ ] Insignificant Lab Values [ ] Other diagnosis [ ] Unable to determine In addition, please specify: Present on Admission (POA): [x ] Yes [ ] No [ ] Unable to determine National Kidney Foundation Guidelines for CKD Staging Stage I Kidney damage with normal or increased GFR GFR > 90 Stage II Kidney damage with mildly decreased GFR GFR 60- 89 Stage III Kidney damage with moderately decreased GFR GFR 30-59 Stage IV Kidney damage with severely decreased GFR GFR 16-29 Stage V Kidney failure GFR<15 ESRD End Stage Renal Disease On dialysis Acute Renal Failure/Acute Kidney Failure defined as: Increases in SCr by (>) 0.3 mg/dl within 48 hours OR- Increases in SCr by (>) 1.5 times baseline, known or presumed to have occurred within the prior 7 days OR- Urine volume < 0.5 ml/kg/hour for 6 hours (KDIGO supplement 2012 for RIFLE/MERNA criteria) For continuity of documentation, please document condition throughout progress notes and discharge summary. Thank You. CLINICAL INDICATORS - SIGNS / SYMPTOMS / LABS: GFR: 06-10-19: 52 06-13-19: 61 06-14-19: 72 06-15-19: 57 CREATININE: 06-10-19: 1.40 06-13-19: 1.22 06-14-19: 1.06 06-15-19: 1.31 BUN: 06-10-19: 19 ER NOTES 06-10-19: PT REPORTS NAUSEA LAST NIGHT WITH CP. RISK FACTORS: H&P: 06-10-19: HOME MEDS: LISINOPRIL PO TREATMENTS: SERIES OF LABS BEING MONITORED MAR: 06-14-19: LR AT 75ML/HR, 9-2-19: LISINOPRIL PO (This form is maintained as a part of the permanent medical record) 2014 [employer] All Rights Reserved HUSSAIN [email or web address] Office: [phone] [facility] HOSPITALChasity
--- NOTE | 2019-06-15 14:00 | PDOC.CPN ---
- Subjective Date: 06/15/19 Time: 13:59 Interval history: He is doing much better. Pain well controlled. - Review of Systems General: denies: fever/chills, weight/appetite/sleep changes, night sweats, fatigue Respiratory: reports: cough. denies: congestion, shortness of breath, exercise intolerance Cardiovascular: reports: chest pain. denies: palpitation, edema, paroxysmal nocturnal dyspnea, orthopnea Gastrointestinal: denies: nausea, vomiting, diarrhea, constipation, abd pain, GI bleeding Musculoskeletal: reports: pain. denies: tenderness, stiffness, swelling, arthritis/arthralgias Neurological: denies: numbness, syncope, seizure, weakness - Objective Allergies/Adverse Reactions: Allergies Allergy/AdvReac Type Severity Reaction Status Date / Time No Known Allergies Allergy Unverified 06/10/19 22:42 Visit Medications: Current Medications Acetaminophen (Tylenol) 650 mg PO Q6H PRN PRN Reason: Headache/Fever Or Mild Pain Hydrocodone Bitart/Acetaminophen ([place] 5/325) 1 tab PO Q4H PRN PRN Reason: Moderate Pain (4-6) Hydrocodone Bitart/Acetaminophen ([place]el[place] 5/325) 2 tab PO Q4H PRN PRN Reason: Severe Pain (7-10) Last Admin: 06/15/19 12:27 Dose: 2 tab Al Hydroxide/Mg Hydroxide (Maalox) 30 ml PO Q4H PRN PRN Reason: Indigestion Albuterol/Ipratropium (Duoneb) 3 ml NEB [id number] PRN PRN Reason: SHORTNESS OF BREATH Aspirin (Aspirin) 325 mg PO DAILY [facility] Last Admin: 06/15/19 08:54 Dose: 325 mg Atorvastatin Calcium (Lipitor) 20 mg PO HS [facility] Last Admin: 06/14/19 20:33 Dose: 20 mg Bisacodyl (Dulcolax) 10 mg PO Q12H PRN PRN Reason: Constipation Bisacodyl (Dulcolax) 10 mg [place] Q12H PRN PRN Reason: Constipation Dextrose/Water (Dextrose 50%) 25 gm SLOW IVP PRN PRN PRN Reason: PER HYPOGLYCEMIC PROTOCOL Famotidine (Pepcid) 20 mg SLOW IVP Q12HR [facility] Last Admin: 06/15/19 08:54 Dose: 20 mg Fentanyl (Sublimaze) 25 mcg SLOW IVP Q2H PRN PRN Reason: Moderate Pain (4-6) Stop: 06/16/19 11:28 Last Admin: 06/14/19 12:06 Dose: 25 mcg Fentanyl (Sublimaze) 50 mcg SLOW IVP Q2H PRN PRN Reason: Severe Pain (7-10) Stop: 06/16/19 11:28 Last Admin: 06/15/19 03:10 Dose: 50 mcg Glucagon (Glucagon) 1 mg SC PRN PRN PRN Reason: PER HYPOGLYCEMIC PROTOCOL Guaifenesin/Dextromethorphan (Robitussin Dm) 15 ml PO Q4H PRN PRN Reason: Cough Hydralazine HCl (Apresoline) 10 mg SLOW IVP Q6H PRN PRN Reason: To Maintain SBP< 140mmHG Dopamine HCl/Dextrose (Dopamine 400 Mg/D5w 250 Ml) 250 mls @ 0 mls/hr IVPB PRN PRN; Protocol PRN Reason: To maintain SBP > 90 mmHG Lactated Ringer's (Lactated Ringer's) 1,000 mls @ 75 mls/hr IV .[id number] JIM Last Admin: 06/15/19 03:11 Dose: 1,000 mls Norepinephrine Bitartrate (Levophed) 250 mls @ 0 mls/hr IVPB PRN PRN; Protocol PRN Reason: To maintain SBP > 90 mmHG Nicardipine HCl 25 mg/ Sodium (Chloride) 260 mls @ 0 mls/hr IVPB INF PRN; Protocol PRN Reason: To Maintain SBP< 140mmHG Nitroglycerin/Dextrose (Nitroglycerin 50 Mg/250 Ml Bot) 250 mls @ 0 mls/hr IVPB PRN PRN; Protocol PRN Reason: To Maintain SBP< 140mmHG Insulin Human Regular 100 (units/ Sodium Chloride) 101 mls @ 0 mls/hr IVPB INF JIM; Protocol Dextrose/Water (D5w) 1,000 mls @ 0 mls/hr IV INF PRN PRN Reason: PRN HYPOGLYCEMIC PROTOCOL Insulin Glargine (Lantus) 0 units SC ONE PRN PRN Reason: POST OPEN HEART ORDERS Stop: 06/15/19 17:00 Insulin Human Regular (Humulin R) 0 units SC Q4H PRN; Protocol PRN Reason: POST CABG SLIDING SCALE Last Admin: 06/15/19 12:28 Dose: 2 unit Morphine Sulfate (Morphine) 2 mg SLOW IVP Q15MIN PRN PRN Reason: Severe Pain (7-10) Ondansetron HCl (Zofran) 4 mg IVP Q6H PRN PRN Reason: Nausea/Vomiting Last Admin: 06/14/19 12:36 Dose: 4 mg Potassium Chloride (Kcl) 20 meq IVPB PRN PRN PRN Reason: K level </= 4.0 Last Admin: 06/15/19 06:48 Dose: 20 meq Promethazine HCl (Phenergan) 6.25 mg IM Q4H PRN PRN Reason: Nausea/Vomiting Vital Signs & Weight: Vital Signs Temp Pulse Ox 06/15/19 08:07 93 L 06/15/19 08:00 98.2 F 94 L 06/15/19 04:00 98.9 F 95 06/15/19 02:00 99.5 F Admit Weight 215 lb 9.793 oz Weight 218 lb 11.177 oz - Physical Exam General: alert & oriented x3, no apparent distress HEENT: mucus membranes moist Neck: supple neck Cardiac: regular rate and rhythm, no murmur Lungs: clear to auscultation Neuro: grossly intact Abdomen: active bowel sounds, soft, non-tender Skin: clear Musculoskeletal: normal range of motion - Labs Result Diagrams: 06/15/19 04:10 06/15/19 04:10 Troponin/CKMB CK-MB (CK-2) 2.6 ng/mL (0-6.6) 06/10/19 18:15 Troponin I 0.034 ng/mL (< 0.028) H 06/11/19 00:21 - Telemetry Sinus rhythms and dysrhythmias: sinus rhythm - Assessment/Plan Assessment/Plan: 1. Multivessel CAD. 2. Unstable angina 3. Aneurysmal coronary arteries. 4. S/P CABG x 2 CHU to LAD and SVG to OM. PLAN: - Continue post op care. - ASA/statin for life. - BB and ACEI once BP allows. - PT as tolerated. - Critical Care Time Critical care time (mins): 30
--- NOTE | 2019-06-15 14:35 | PRG ---
DATE OF SERVICE: 06/15/2019 SUBJECTIVE: The patient is doing well postop day #1 on a low-dose Levophed drip at this time. Remains in good spirits. Remains very talkative. OBJECTIVE: VITAL SIGNS: Temperature 98.9, pulse 83, blood pressure 104/54, and pulse ox 93% on room air. HEART: Regular rate and rhythm. LUNGS: Clear. ABDOMEN: Soft and nontender. EXTREMITIES: With no edema. LABORATORY DATA: H and H of 11 and 32, platelet 172, sodium 135, potassium 4.0, creatinine 1.31, and BUN 18. Blood sugar 106, 111. ASSESSMENT: 1. Postoperative day #1, status post coronary artery bypass grafting by Dr. Beasley. 2. Multivessel coronary artery disease. 3. Unstable angina for aneurysmal coronary artery. 4. Hypertension. 5. Hyperlipidemia. 6. Obesity. 7. Anxiety disorder. 8. Diabetes, diet controlled. PLAN: 1. Continue routine postop orders. 2. Hopefully, can remove the chest tube this evening. 3. Ambulate soon. 4. Wean the Levophed. 5. Aspirin, statin, KLEVER inhibitor, and beta-winifred. Job ID: [id number]
[2019-06-15] MEDS ORDERED: Mag-Al 1200 mg/1200 mg/30 ML UDCUP PO PRN (17:07)
[2019-06-15] MEDS ORDERED: Guaifenesin DM 100-10/5 ML UDCUP PO PRN (17:07)
[2019-06-15] MEDS ORDERED: Milk Of Magnesia 30 ML UDCUP PO PRN (17:07)
[2019-06-15] MEDS ORDERED: Bisacodyl 10 MG SUPP PR PRN (17:07)
[2019-06-15] MEDS ORDERED: Zolpidem Tartrate 5 MG TAB PO PRN (17:07)
[2019-06-15] MEDS ORDERED: Bisacodyl 5 MG TAB PO PRN (17:07)
[2019-06-15] MEDS ORDERED: Acetaminophen 325 MG TAB PO PRN (17:07)
[2019-06-15] MEDS ORDERED: Mineral Oil ENEMA PR PRN (17:07)
[2019-06-15] MEDS ORDERED: Nitroglycerin 0.4 MG TAB (25 Tab Bottle) SL PRN (17:07)
[2019-06-15] MEDS: Ibuprofen 800 MG TAB PO SCH (18:03)
[2019-06-15] MEDS: Famotidine 20 MG TAB PO SCH (20:13)
[2019-06-15] MEDS: Atorvastatin Calcium 20 MG TAB PO SCH (20:13)
[2019-06-16] MEDS: HYDROcodone/Acetaminophen 5/325 mg Tablet PO PRN ×4 (03:07→22:59)
[2019-06-16] MEDS: Ibuprofen 800 MG TAB PO SCH ×3 (03:07→17:03)
[2019-06-16 04:02] LABS: Anion Gap 6 mmol/L (10-20); BUN (Urea Nitrogen) 19 mg/dL (8.4-25.7); Calc. Creatinine Clearance 98 mL/min (70-130); Calcium 8.3 mg/dL (7.8-10.44); Carbon Dioxide 26 mmol/L (22-29); Chloride 109 mmol/L (98-107); Estimated GFR-MDRD 64; Glucose 119 mg/dL (70-105); Potassium 4.1 mmol/L (3.5-5.1); Sodium 137 mmol/L (136-145)
[2019-06-16] MEDS: Potassium Chloride 10 MEQ TAB PO SCH (08:26)
[2019-06-16] MEDS: Famotidine 20 MG TAB PO SCH ×2 (08:26→19:52)
[2019-06-16] MEDS: Furosemide 40 MG TAB PO SCH (08:26)
[2019-06-16] MEDS: Aspirin 325 mg Enteric Coated Tablet PO SCH (08:26)
[2019-06-16] MEDS: Polyethylene Glycol 3350 17 GM Packet PO SCH (08:27)
--- NOTE | 2019-06-16 11:01 | PRG ---
DATE OF SERVICE: 06/16/2019 SUBJECTIVE: The patient is doing remarkably well. Still with moderate chest discomfort from this surgery. However, he is awake, alert, tolerating a regular diet. His [place] catheter was just removed. OBJECTIVE: VITAL SIGNS: Temperature 98.4, pulse 77, respirations 18, pulse ox 96, and blood pressure 130/74. HEART: Regular rate and rhythm. LUNGS: Clear. ABDOMEN: Soft. EXTREMITIES: With no edema. LABORATORY DATA: Sodium 137, potassium 4.1, creatinine 1.18, BUN 19, and blood sugar 119. ASSESSMENT: 1. Postop day #2, status post coronary artery bypass grafting x2. 2. Multivessel coronary artery disease. 3. Unstable angina. 4. Aneurysmal coronary artery. 5. Hypertension. 6. Hyperlipidemia. 7. Obesity. 8. Anxiety disorder. 9. Diabetes, diet controlled. PLAN: 1. Continue routine postop orders. 2. Aggressive blood pressure and statin control. 3. Discharge planning. Job ID: [id number]
--- NOTE | 2019-06-16 15:10 | PRG ---
DATE OF SERVICE: 06/16/2019 SUBJECTIVE: Mr. Hauser is doing well. He feels very well. No chest pain or pressure. OBJECTIVE: VITAL SIGNS: Blood pressure 134/75, pulse 80 and it is regular. LUNGS: Clear. CARDIAC: Normal S1. Normal S2. ABDOMEN: Soft and nontender. EXTREMITIES: No edema. ASSESSMENT: 1. Status post bypass surgery, doing well. 2. Some aneurysmal dilatation of the coronary arteries. 3. Hypercholesterolemia. PLAN: He is on aspirin and statin, beta winifred and KLEVER inhibitors once blood pressure allows. Currently receiving furosemide, consideration for low-dose beta blockers tomorrow if blood pressure is adequate. Job ID: [id number]
[2019-06-16] MEDS: Atorvastatin Calcium 20 MG TAB PO SCH (19:52)
[2019-06-17] MEDS: HYDROcodone/Acetaminophen 5/325 mg Tablet PO PRN ×4 (02:39→22:14)
[2019-06-17] MEDS: Ibuprofen 800 MG TAB PO SCH ×3 (02:40→18:31)
[2019-06-17] MEDS: Polyethylene Glycol 3350 17 GM Packet PO SCH (09:00)
[2019-06-17] MEDS: Famotidine 20 MG TAB PO SCH ×2 (09:02→20:21)
[2019-06-17] MEDS: Potassium Chloride 10 MEQ TAB PO SCH (09:02)
[2019-06-17] MEDS: Aspirin 325 mg Enteric Coated Tablet PO SCH (09:02)
[2019-06-17] MEDS: Furosemide 40 MG TAB PO SCH (09:02)
--- NOTE | 2019-06-17 11:16 | PRG ---
DATE OF SERVICE: 06/17/2019 SUBJECTIVE: Mr. Hauser is doing well. He is up walking, feels very much better. He still has some decreased energy. OBJECTIVE: VITAL SIGNS: Blood pressure 130/82, pulse 73 and regular. LUNGS: Clear. CARDIAC: Normal S1. Normal S2. ABDOMEN: Soft and nontender. EXTREMITIES: There is no edema. ASSESSMENT: 1. Status post coronary artery bypass grafting. 2. History of hypertension. 3. Some aneurysmal dilatation of the coronary arteries. 4. Hypercholesterolemia. PLAN: 1. Start low-dose carvedilol to help with blood pressure and heart rate. Try to prevent fibrillation. 2. Possibly home tomorrow. Dr. Lugo to check him tomorrow. Job ID: [id number]
--- NOTE | 2019-06-17 13:24 | PRG ---
DATE OF SERVICE: 06/17/2019 SUBJECTIVE: Today, the patient is postop day #3, status post coronary artery bypass grafting x2. This morning, the patient continues to do well. No complaints of any chest pain. He remains quite active. OBJECTIVE: VITAL SIGNS: Temperature 98.7, pulse 73, respirations 14, and blood pressure 130/82. HEART: Regular rate and rhythm. LUNGS: Clear. ABDOMEN: Soft. EXTREMITIES: With no edema. Wounds are intact, clear. LABORATORY DATA: None. ASSESSMENT: 1. Postoperative day #3, status post bypass x2. 2. Multivessel coronary artery disease. 3. Unstable angina. 4. Aneurysmal coronary artery. 5. Hypertension. 6. Hyperlipidemia. 7. Obesity. 8. Anxiety disorder. 9. Diabetes, diet controlled. PLAN: 1. Continue routine postop orders. 2. Cardiac rehab. 3. We will initiate an KLEVER inhibitor and beta-winifred today. Job ID: [id number]
[2019-06-17] MEDS: Carvedilol 3.125 MG TAB PO SCH (18:30)
[2019-06-17] MEDS: Atorvastatin Calcium 20 MG TAB PO SCH (20:21)
[2019-06-18] MEDS: HYDROcodone/Acetaminophen 5/325 mg Tablet PO PRN ×2 (05:39→13:21)
--- NOTE | 2019-06-18 08:08 | DIS ---
DATE OF ADMISSION: 06/10/2019 DATE OF DISCHARGE: 06/18/2019 DISCHARGE DIAGNOSES: 1. Postoperative day #4, status post bypass x2. 2. Multivessel coronary artery disease. 3. Unstable angina. 4. Aneurysmal coronary artery. 5. Hypertension. 6. Hyperlipidemia. 7. Obesity. 8. Anxiety disorder. 9. Diabetes, diet controlled. DISCHARGE MEDICATIONS: 1. Sertraline 100 daily. 2. Lisinopril 5 daily. 3. Prevacid 30 daily. 4. Coreg 3.125 p.o. b.i.d. 5. Atorvastatin 20 daily. 6. Aspirin 325 daily. FOLLOWUP: Follow up with Dr. Beasley. Follow up with Dr. Nathan Nunez in 2 to 3 days. Follow up with Dr. Lugo. BRIEF HISTORY: This is a 54-year-old white male with a strong family history of heart disease, history of hypertension, hyperlipidemia, and obesity, who presents to the emergency room with 1-week history of chest pain. He has been seen by Dr. Arrieta in the past. 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 His very close friend recently with cancer. Over the past week, he has been developing substernal chest pain with shortness of breath. He is unable to do his normal physical labor. He presents to the ER and was to be evaluated. HOSPITAL COURSE: The patient had exertional chest pain on treadmill testing. He then underwent a cardiac catheterization, which revealed significant coronary artery disease. The patient underwent a coronary artery bypass grafting x2. He did have CHU to LAD and SVG to OM. Aneurysmal coronary artery was also noted, but appeared stable. Medications have been discussed with the patient. He is well aware that he needs an aspirin, statin, beta-winifred, and KLEVER inhibitor for life. The patient also states that he is going to significantly change his lifestyle to include dieting and exercising. Discharge H and H of 11 and 32, white count 10. Sodium 137, creatinine 1.18, and BUN 19. Job ID: [id number]
[2019-06-18] MEDS ORDERED: Lisinopril 5 MG TAB PO SCH (09:00)
[2019-06-18] MEDS: Polyethylene Glycol 3350 17 GM Packet PO SCH (09:22)
[2019-06-18] MEDS: Carvedilol 3.125 MG TAB PO SCH (09:22)
[2019-06-18] MEDS: Famotidine 20 MG TAB PO SCH (09:22)
[2019-06-18] MEDS: Aspirin 325 mg Enteric Coated Tablet PO SCH (09:22)
[2019-06-18] MEDS: Potassium Chloride 10 MEQ TAB PO SCH (09:22)
[2019-06-18] MEDS: Furosemide 40 MG TAB PO SCH (09:22)
--- NOTE | 2019-06-18 12:01 | PDOC.CPN ---
- Subjective Date: 06/18/19 Time: 11:59 Interval history: Doing well. Sore chest but better every day. Had a BM this morning. Working with PT without issues. - Review of Systems General: denies: fever/chills, weight/appetite/sleep changes, night sweats, fatigue Respiratory: denies: cough, congestion, shortness of breath, exercise intolerance Cardiovascular: reports: chest pain. denies: palpitation, edema, paroxysmal nocturnal dyspnea, orthopnea Gastrointestinal: denies: nausea, vomiting, diarrhea, constipation, abd pain, GI bleeding Musculoskeletal: denies: pain, tenderness, stiffness, swelling, arthritis/ arthralgias Neurological: denies: numbness, syncope, seizure, weakness - Objective Allergies/Adverse Reactions: Allergies Allergy/AdvReac Type Severity Reaction Status Date / Time No Known Allergies Allergy Unverified 06/10/19 22:42 Visit Medications: Current Medications Acetaminophen (Tylenol) 650 mg PO Q6H PRN PRN Reason: Headache/Fever or Pain Hydrocodone Bitart/Acetaminophen ([place] 5/325) 1 tab PO Q4H PRN PRN Reason: Moderate Pain (4-6) Hydrocodone Bitart/Acetaminophen ([place] 5/325) 2 tab PO Q4H PRN PRN Reason: Severe Pain (7-10) Last Admin: 06/18/19 05:39 Dose: 2 tab Al Hydroxide/Mg Hydroxide (Maalox) 30 ml PO Q4H PRN PRN Reason: Indigestion Aspirin (Ecotrin) 325 mg PO DAILY [facility] Last Admin: 06/18/19 09:22 Dose: 325 mg Atorvastatin Calcium (Lipitor) 20 mg PO [facility] Last Admin: 06/17/19 20:21 Dose: 20 mg Bisacodyl (Dulcolax) 10 mg PO Q12H PRN PRN Reason: Constipation Bisacodyl (Dulcolax) 10 mg [place] Q12H PRN PRN Reason: Constipation Carvedilol (Coreg) 3.125 mg PO BID-[facility] Last Admin: 06/18/19 09:22 Dose: 3.125 mg Famotidine (Pepcid) 20 mg PO BID [facility] Last Admin: 06/18/19 09:22 Dose: 20 mg Furosemide (Lasix) 40 mg PO DAILY [facility] Last Admin: 06/18/19 09:22 Dose: 40 mg Guaifenesin/Dextromethorphan (Robitussin Dm) 15 ml PO Q4H PRN PRN Reason: Cough Lisinopril (Zestril) 5 mg PO DAILY [facility] Last Admin: 06/18/19 09:22 Dose: 5 mg Magnesium Hydroxide (Milk Of Magnesium) 30 ml PO Q12H PRN PRN Reason: Constipation Mineral Oil (Fleet Mineral Oil) 133 ml [place] DAILYPRN PRN PRN Reason: Constipation Nitroglycerin (Nitrostat) 0.4 mg SL Q5MIN PRN PRN Reason: Chest Pain Polyethylene Glycol (Miralax) 17 gm PO DAILY [facility] Last Admin: 06/18/19 09:22 Dose: 17 gm Potassium Chloride (Klor-Con 10) 10 meq PO QAM-WM [facility] Last Admin: 06/18/19 09:22 Dose: 10 meq Zolpidem Tartrate (Ambien) 5 mg PO HSPRN PRN PRN Reason: Insomnia Vital Signs & Weight: Vital Signs Temp Pulse Resp BP Pulse Ox 06/18/19 09:22 66 06/18/19 08:00 97.8 F 76 18 137/89 97 06/18/19 03:05 98.7 F 66 14 151/87 H 96 Admit Weight 215 lb 9.793 oz Weight 230 lb - Physical Exam General: alert & oriented x3 HEENT: mucus membranes moist Neck: supple neck Cardiac: regular rate and rhythm, no murmur Lungs: clear to auscultation Neuro: grossly intact Abdomen: active bowel sounds, soft, non-tender Skin: clear Musculoskeletal: normal range of motion - Labs Result Diagrams: 06/15/19 04:10 06/16/19 03:20 Troponin/CKMB CK-MB (CK-2) 2.6 ng/mL (0-6.6) 06/10/19 18:15 Troponin I 0.034 ng/mL (< 0.028) H 06/11/19 00:21 - Telemetry Sinus rhythms and dysrhythmias: sinus rhythm - Assessment/Plan Assessment/Plan: 1. Multivessel CAD. 2. Unstable angina 3. Aneurysmal coronary arteries. 4. S/P CABG x 2 CHU to LAD and SVG to OM. PLAN: - ASA/statin for life. - BB and ACEI. - PT as tolerated. - May discharge at any time from cardiac perspective, - Follow up in 1 month in the offiice.
--- NOTE | 2019-06-18 12:08 | DIS ---
DATE OF ADMISSION: 06/10/2019 DATE OF DISCHARGE: 06/18/2019 HOSPITAL COURSE: This is a 54-year-old gentleman, who had undergone cardiac catheterization and found to have some aneurysmal coronary arteries as well as significant coronary artery disease. He was admitted to the hospital, where he underwent a CT scan of the chest showing no other significant abnormalities of his aorta. A carotid Doppler study was rather unremarkable. He was taken to the operating room on 06/14, where he underwent two-vessel grafting to the LAD and obtuse marginal. His postoperative course was remarkable only for a very brief episode of atrial tachycardia. He is ambulating in the halls and otherwise doing well. He will be discharged home on lisinopril 5 mg a day and atorvastatin 20 a day. Resume his sertraline and also begin Coreg 3.125 b.i.d. He will also be on aspirin daily. Discharge and followup instructions have been given. Job ID: [id number]
[2019-06-18 13:14] VITALS: BP 121/77; TEMP 98.1
== END 2019-06-18 17:32 | disposition home or self-care (01) | DRG 234 ==
LOC: ERS 17:47 → 2NO 20:37 → CCU 06-14 06:16 → 2NO 06-16 06:31
PROVIDERS: ADMIT Family Medicine; ATTEND Family Medicine
PROC: 4A023N7 Measurement of Cardiac Sampling and Pressure, Left Heart, Percutaneous Approach (ICD-10-PCS; principal; 2019-06-12)
PROC: B2111ZZ Fluoroscopy of Multiple Coronary Arteries using Low Osmolar Contrast (ICD-10-PCS; 2019-06-12)
PROC: B2151ZZ Fluoroscopy of Left Heart using Low Osmolar Contrast (ICD-10-PCS; 2019-06-12)
PROC: 02100Z9 Bypass Coronary Artery, One Artery from Left Internal Mammary, Open Approach (ICD-10-PCS; 2019-06-14)
PROC: 021009W Bypass Coronary Artery, One Artery from Aorta with Autologous Venous Tissue, Open Approach (ICD-10-PCS; 2019-06-14)
PROC: 06BQ4ZZ Excision of Left Saphenous Vein, Percutaneous Endoscopic Approach (ICD-10-PCS; 2019-06-14)
PROC: 5A1221Z Performance of Cardiac Output, Continuous (ICD-10-PCS; 2019-06-14)
DX: I25.110 Atherosclerotic heart disease of native coronary artery with unstable angina pectoris (principal); N17.9 Acute kidney failure, unspecified; I25.41 Coronary artery aneurysm; E78.5 Hyperlipidemia, unspecified; I11.9 Hypertensive heart disease without heart failure; E66.9 Obesity, unspecified; F41.9 Anxiety disorder, unspecified; E11.9 Type 2 diabetes mellitus without complications; E78.00 Pure hypercholesterolemia, unspecified; Z79.01 Long term (current) use of anticoagulants; Z68.32 Body mass index [BMI] 32.0-32.9, adult
CPT/HCPCS: 36415; 36416; 36430; 71045; 78452; 80048; 80053; 82553; 82805; 82947; 83036; 83690; 84484; 85025; 85379; 85610; 85730; 86850; 86900; 86901; 93005; 93010; 93017; 93458; 93798; 93880; 94002; 94760; 96372; 99152; A9500; C1769; J0153; J0290; J0690; J1642; J1644; J1650; J1815; J1885; J2001; J2150; J2250; J2405; J2440; J2704; J2720; J3010; J3370; J3475; J3480; J7050; P9045; Q9967; S0017; S0028

== ENCOUNTER 2021-10-30 12:52 | Outpatient (CLI) | payer BC ==
[2021-10-30 15:38] LABS: #Basophils 0.1 10x3/uL (0.0-0.2); #Eosinphils 0.2 10x3/uL (0.0-0.5); #Monocytes 0.6 10x3/uL (0.0-1.1); #Neutrophils 3.4 10x3/uL (1.5-8.4); %Basophils 1.3 % (0.0-2.0); %Eosinophils 3.8 % (0.0-6.0); %Lymphocytes 31.2 % (18.0-47.0); %Monocytes 9.7 % (0.0-10.0); %Neutrophils 53.5 % (40.0-75.0); Hemoglobin 14.9 g/dL (13.5-17.5); Mean Corpuscular HGB CONC 34.3 g/dL (32.0-36.0); Mean Corpuscular Hemoglobin 30.3 pg (27.0-33.0); Mean Corpuscular Volume 88.2 fl (81.2-95.1); Mean Platelet Volume 9.9 fl (7.4-10.4); Platelet Count 230 10x3/uL (150-450); RBC Distribution Width 12.7 % (11.5-14.5); Red Blood Cell (RBC) Count 4.92 10x6/uL (4.32-5.72); White Blood Cell (WBC) Count 6.3 10x3/uL (3.5-10.5)
[2021-10-30 15:45] LABS: Anion Gap 13 mmol/L (10-20); BUN (Urea Nitrogen) 14 mg/dL (8.4-25.7); Calc. Creatinine Clearance 0 mL/min (70-130); Carbon Dioxide 26 mmol/L (22-29); Chloride 105 mmol/L (98-107); Glucose 118 mg/dL (70-105); Potassium 4.6 mmol/L (3.5-5.1); Sodium 139 mmol/L (136-145)
[2021-10-30 23:49] LABS: SARS-CoV-2 PCR by NAA Not Detected (NotDetected)
== END 2021-10-30 12:53 | disposition home or self-care (01) ==
LOC: LABBT 12:52
PROVIDERS: ATTEND Orthopaedic Surgery
DX: Z01.818 Encounter for other preprocedural examination (principal); S62.102A Fracture of unspecified carpal bone, left wrist, initial encounter for closed fracture; Z20.822 Contact with and (suspected) exposure to COVID-19
CPT/HCPCS: 80048; 85025; 93005; 93010; U0003; U0005

== ENCOUNTER 2021-11-04 06:32 | Day surgery (SDC) | payer BC ==
[2021-11-02 10:02] VITALS: BMI 29.8
[2021-11-04] MEDS ORDERED: Fentanyl 100 MCG/2 ML VIAL ONE (07:32)
[2021-11-04] MEDS ORDERED: Midazolam HCl 2 mg/2 ml Vial ONE (07:32)
[2021-11-04] MEDS ORDERED: Bupivacaine 0.25% HCL 30 ML VIAL ONE (08:11)
[2021-11-04] MEDS ORDERED: ceFAZolin 2 GM/Dextrose 50 ML IVPB ONE (08:17)
[2021-11-04] MEDS ORDERED: Bupivacaine HCl 0.5%/Epinephrine 1:200,000/PF 30 ml Vial ONE (08:39)
[2021-11-04] MEDS ORDERED: Ondansetron PF 4 MG/2 ML Vial ONE (08:39)
[2021-11-04] MEDS ORDERED: Dexamethasone 20 MG/5 ML VIAL ONE (08:39)
[2021-11-04] MEDS ORDERED: PROPOFOL 200 MG/20 ML VIAL ONE (08:39)
[2021-11-04] MEDS ORDERED: Ketorolac Tromethamine 30 MG/ML VIAL ONE (08:39)
[2021-11-04] MEDS ORDERED: Lidocaine 1% PF 5 ML VIAL ONE (08:39)
== END 2021-11-04 12:09 | disposition home or self-care (01) ==
LOC: SDC 06:32
PROVIDERS: ATTEND Orthopaedic Surgery
PROC: 3E0T3BZ Introduction of Anesthetic Agent into Peripheral Nerves and Plexi, Percutaneous Approach (ICD-10-PCS; principal; 2021-11-04)
PROC: 0PSJ04Z Reposition Left Radius with Internal Fixation Device, Open Approach (ICD-10-PCS; principal; 2021-11-04)
DX: S52.572A Other intraarticular fracture of lower end of left radius, initial encounter for closed fracture (principal); E11.9 Type 2 diabetes mellitus without complications; I10 Essential (primary) hypertension; E78.5 Hyperlipidemia, unspecified; K21.9 Gastro-esophageal reflux disease without esophagitis; Z79.82 Long term (current) use of aspirin; Z79.899 Other long term (current) drug therapy; Z91.048 Other nonmedicinal substance allergy status; Z95.1 Presence of aortocoronary bypass graft; W11.XXXA Fall on and from ladder, initial encounter
CPT/HCPCS: 76000; C1713; J0690; J1100; J1885; J2250; J2405; J2704; J3010; S0020

== ENCOUNTER 2023-12-20 15:44 | Outpatient (CLI) | payer BC | END 2023-12-20 15:45 | disposition home or self-care (01) | LOC: BICRAD 15:44 | PROVIDERS: ATTEND Nurse Practitioner Family | DX: R53.83 Other fatigue (principal) | CPT/HCPCS: 71046 ==

== ENCOUNTER 2025-09-03 13:43 | Emergency (ER) | payer BC | END 2025-09-03 14:38 | LOC: ERS 13:43 | DX: Z53.21 Procedure and treatment not carried out due to patient leaving prior to being seen by health care provider (principal) ==